=== PATIENT | female | born 1955 | race Caucasian/White ===

== ENCOUNTER 2020-04-29 08:17 | Outpatient (CLI) | payer MEDICARE ==
--- NOTE | 2020-04-29 09:05 | ULT ---
US Abdominal Aorta: 04/29/2020 8:25 AM CLINICAL HISTORY: AAA screening. STUDY: Limited abdominal ultrasound of the aorta. TECHNIQUE: A limited ultrasound of the abdominal aorta was performed. Spectral analysis of the Dopple r waveform was performed. COMPARISON: None. FINDINGS: The aorta is normal in caliber without evidence of aneurysmal dilatation and measures 2.5 cm in great est dimension. The common iliac arteries are normal in caliber. IMPRESSION: No evidence of abdominal aortic aneurysm.
--- NOTE | 2020-04-29 09:23 | BD ---
EXAM: DEXA bone density examination HISTORY: 65-year-old postmenopausal female for screening COMPARISON: None FINDINGS: L1--bone mineral density 0.918 g/sq cm; T score -0.7 L2--bone mineral density 0.970 g/sq cm; T score -0.5 L3--bone mineral density 0.870 g/sq cm; T score -1.9 L4--bone mineral density 1.116 g/sq cm; T score 0.5 Total L1-L4--bone mineral density 0.972 g/sq cm; T score -0.7 Left femoral neck--bone mineral density0.637; T score -1.9 Total proximal left femur--bone mineral density 0.750; T score -1.6 IMPRESSION: Osteopenia. This patient has a 10 year WHO fracture risk of a major osteoporotic fracture of 18% and of a hip fracture of 3.5%.
--- NOTE | 2020-04-29 09:50 | MMO ---
Bilateral MAMMO Bilat Screen [facility]. CLINICAL HISTORY: Patient is 65 years old and is seen for screening. The patient has no family history of breast cancer. The patient has no personal history of cancer. The patient has a history of bilateral Implants at an unknown age - SILICONE GEL. VIEWS: The views performed were: bilateral craniocaudal with tomosynthesis; bilateral mediolateral oblique with tomosynthesis; and bilateral Implant displaced. This study has been interpreted with the assistance of computer-aided detection. MAMMOGRAM FINDINGS: There are scattered fibroglandular densities. Finding 1: There is a high density mass measuring 20 millimeters with obscured margins seen in the MLO view only seen in the posterior upper region of the right breast. Finding 2: There are calcified implants seen in both breasts. IMPRESSION: FINDING 1: MASS IN THE RIGHT BREAST REQUIRES ADDITIONAL EVALUATION. RECOMMEND DIAGNOSTIC MAMMOGRAM. ULTRASOUND MAY ALSO PROVE USEFUL AT RECALL. THE RESULTS OF THIS EXAM WERE SENT TO THE PATIENT. ACR BI-RADS Category 0 - Incomplete: Need additional imaging evaluation. [facility] will notify the patient of the need for additional imaging services. MAMMOGRAPHY NOTE: 1. A negative mammogram report should not delay a biopsy if a dominant of clinically suspicious mass is present. 2. Approximately 10% to 15% of breast cancers are not detected by mammography. 3. Adenosis and dense breasts may obscure an underlying neoplasm. Reported by: ETELVINA UPTON MD Electonically Signed: [id number]
--- NOTE | 2020-04-29 10:43 | CT ---
EXAM: CT chest without contrast per low-dose cancer screening protocol HISTORY: History of smoking and nicotine dependence COMPARISON: Mammogram 04/29/2020 TECHNIQUE: Multiple contiguous axial images were obtained in a CT of the chest without contrast per l ow-dose cancer screening protocol. Sagittal and coronal reformats were performed. FINDINGS: Pulmonary nodules: There is a 3 mm nodule on image 86 of 173 in the superior aspect of the right lowe r lobe. A peripheral 4 mm nodule is seen on image 104 of 173 and the right lower lobe. No focal infiltrates are seen. Pleural space: No pneumothorax or pleural effusion are seen. Heart: The heart is normal in size. Mediastinum: No hilar or mediastinal lymphadenopathy appreciated on this limited noncontrast examinat ion. Bones: Degenerative changes in the spine. There is a remote compression fracture in the lower thoraci c spine. Chest wall soft tissues: The patient has calcified bilateral breast implants. There are 2 masses onofre cent to the right breast implant measuring up to 2.0 cm in size. These likely represent 2 areas of extracapsular silicone. Visualized subdiaphragmatic structures: Unremarkable. IMPRESSION: 1. Lung RADS category 2-benign findings. 2. Lung RADS category S-there are 2 masses adjacent to the right breast implant which likely represen t extracapsular silicone.
== END 2020-04-29 08:18 | disposition home or self-care (01) ==
LOC: BICULT 08:17
PROVIDERS: ATTEND Family Medicine
DX: Z12.31 Encounter for screening mammogram for malignant neoplasm of breast (principal); Z12.2 Encounter for screening for malignant neoplasm of respiratory organs; Z13.6 Encounter for screening for cardiovascular disorders; M81.0 Age-related osteoporosis without current pathological fracture; F17.219 Nicotine dependence, cigarettes, with unspecified nicotine-induced disorders; Z98.82 Breast implant status; N63.10 Unspecified lump in the right breast, unspecified quadrant; M85.89 Other specified disorders of bone density and structure, multiple sites
CPT/HCPCS: 76775; 77063; 77067; 77080; G0297

== ENCOUNTER 2020-05-06 13:13 | Outpatient (CLI) | payer MEDICARE ==
--- NOTE | 2020-05-06 14:20 | MMO ---
Right Breast MAMMO Unilat Diag [facility]. CLINICAL HISTORY: Patient is 65 years old and is seen for additional evaluation requested from prior study. The patient has no family history of breast cancer. The patient has no personal history of cancer. The patient has a history of bilateral Implants at an unknown age - SILICONE GEL. VIEWS: The views performed were: right mediolateral oblique spot compression with tomosynthesis; right mediolateral with tomosynthesis; right mediolateral spot compression with tomosynthesis; right exaggerated craniocaudal; and right Implant displaced with tomosynthesis. FILMS COMPARED: The present examination has been compared to prior imaging studies performed at [facility] on 04/29/2020 and 05/06/2020. This study has been interpreted with the assistance of computer-aided detection. MAMMOGRAM FINDINGS: The hyperdense mass like density in the right axillary tail has a snowstorm appearance on US and is consistent with extracapsular silicone. There are no suspicious masses, suspicious calcifications, or new areas of architectural distortion. IMPRESSION: THERE IS NO MAMMOGRAPHIC EVIDENCE OF MALIGNANCY. A ROUTINE FOLLOW-UP MAMMOGRAM IN 1 YEAR IS RECOMMENDED. THE RESULTS OF THIS EXAM WERE SENT TO THE PATIENT. ACR BI-RADS Category 2 - Benign finding MAMMOGRAPHY NOTE: 1. A negative mammogram report should not delay a biopsy if a dominant of clinically suspicious mass is present. 2. Approximately 10% to 15% of breast cancers are not detected by mammography. 3. Adenosis and dense breasts may obscure an underlying neoplasm. Reported by: RAFAEL NORTH MD Electonically Signed: [id number]
--- NOTE | 2020-05-06 14:24 | ULT ---
LIMITED RIGHT BREAST ULTRASOUND: HISTORY: Abnormal mammogram of 04/29/2020. FINDINGS: Correlation is made with the mammogram of 04/29/2020 and today. Sonographic evaluation of the right axillary tail at the 10 o'clock position, 8 cm from the nipple, d emonstrates a focal area of snowstorm appearance corresponding to the extracapsular silicone noted on the mammogram. IMPRESSION: BIRADS category 2 - benign findings. Return to annual mammographic screening. POS: OFF
== END 2020-05-06 13:14 | disposition home or self-care (01) ==
LOC: BICMAMMO 13:13
PROVIDERS: ATTEND Family Medicine
DX: N63.10 Unspecified lump in the right breast, unspecified quadrant (principal); R92.8 Other abnormal and inconclusive findings on diagnostic imaging of breast
CPT/HCPCS: 76642; 77065; G0279